=== PATIENT | female | born 1955 | race Caucasian/White ===

== ENCOUNTER → 2020-05-09 | Outpatient (CLI) | payer OTHER ==
--- NOTE | 2020-05-19 13:28 | REP ---
LEFT TOE SERIES CLINICAL: Pain with trauma. TECHNIQUE: AP, lateral, and bilateral oblique views of the left fourth and fifth toes. FINDINGS: There is a transverse minimally displaced fracture at the base of the fourth proximal phalanx. No other fracture or dislocation is appreciated. IMPRESSION: Transverse fracture at the base of the fourth toe proximal phalanx. MTDD
== END ==
LOC: M WUC 15:39
PROVIDERS: ATTEND Physician Assistant
DX: S92.515A Nondisplaced fracture of proximal phalanx of left lesser toe(s), initial encounter for closed fracture (principal); X58.XXXA Exposure to other specified factors, initial encounter; Y92.89 Other specified places as the place of occurrence of the external cause